=== PATIENT | female | born 1960 | race African-American/Black ===

== ENCOUNTER 2017-09-10 11:32 | Emergency (ER) | payer SELFPAY ==
--- NOTE | 2017-09-10 11:42 | ER Report ---
History and Physical Time Seen By MD: 11:42 HPI/ROS CHIEF COMPLAINT: Flank pain, nausea HISTORY OF PRESENT ILLNESS: 57-year-old female patient presents to emergency room with complaint of flank pain and nausea. Patient states that she was diagnosed in the recent past with kidney stones. She states she was told that she had a 6 mm stone on the left side, she also had 5 on the right. She states she was placed on hydrocodone and Zofran. Patient states that she ran out of the medications 3 days ago. Since then she's been having significant amounts of nausea. She states that she is not been able to keep anything down for the last 6 hours. Everything that she's tried eat or drink has come back up. She denies having any fevers, states she's only been able to stay in the truck and moan due to the pain as well as nausea. Patient did try some [id number] medication with no improvement. Patient does have a history of pancreatitis and has pain to the upper abdomen. REVIEW OF SYSTEMS: Respiratory: No cough, no dyspnea. Cardiovascular: No chest pain, no palpitations. Gastrointestinal: As noted above Musculoskeletal: No back pain. Allergies: Coded Allergies: No Known Drug Allergies (Unverified , 09/10/17) Home Meds Active Scripts Ondansetron (ZOFRAN ODT) 4 Mg Tab.rapdis, 4 MG PO Q6H Y for NAUSEA/VOMITING, # 20 TAB.STACIA Prov:PHILIPPE COLLINSP 09/10/17 Hydrocodone Bit/Acetaminophen (HYDROCODON-ACETAMINOPHEN 5-325) 1 Each Tablet, 1 EACH PO Q4-6H Y for PAIN, #12 TAB Prov:PHILIPPE COLLINS 09/10/17 Past Medical/Surgical History Patient has a past medical history of bronchitis, kidney stones, back pain, pancreatitis. Patient has a surgical history of left oophorectomy. Reviewed Nurses Notes: Yes Constitutional Vital Sign - Last 24 Hours 09/10/17 09/10/17 09/10/17 09/10/17 11:32 11:37 11:39 11:47 Temp 98.3 Pulse ??? 63 74 Resp 20 B/P (MAP) 171/100 (123) 171/100 Pulse Ox 97 98 O2 Delivery Room Air 09/10/17 09/10/17 09/10/17 09/10/17 12:00 12:02 12:17 12:22 Pulse 75 68 70 Resp 21 11 14 B/P (MAP) 161/108 (125) Pulse Ox 98 93 96 09/10/17 09/10/17 09/10/17 09/10/17 12:30 12:37 12:41 12:52 Pulse ??? 68 Resp 13 B/P (MAP) ???/??? (1665) 153/90 (111) Pulse Ox 96 09/10/17 09/10/17 09/10/17 09/10/17 13:00 13:07 13:21 13:22 Pulse 71 ??? Resp 15 B/P (MAP) 166/102 (123) 165/98 (120) Pulse Ox 97 Intake and Output 09/10/17 09/10/17 09/11/17 15:00 23:00 07:00 Intake Total 700 ml Balance 700 ml Physical Exam General Appearance: The patient is alert, has no immediate need for airway protection and no current signs of toxicity. ENT: Tympanic membranes are pearly-king, auditory canals are patent, mucous membranes are moist. Respiratory: Chest is non tender, lungs are clear to auscultation. Cardiac: regular rate and rhythm Gastrointestinal: Abdomen is soft and non tender, no masses, bowel sounds normal. Musculoskeletal: Neck: Neck is supple and non tender. Extremities have full range of motion and are non tender. Skin: No rashes or lesions. DIFFERENTIAL DIAGNOSIS: After history and physical exam differential diagnosis was considered for flank pain including but not limited to musculoskeletal causes, kidney stone, pyelonephritis, shingles, and intra-abdominal causes such as diverticulitis and appendicitis. Included in the differential is pancreatitis. Medical Decision Making Data Points Result Diagram: 09/10/17 1147 09/10/17 1147 Laboratory Hematology Test 09/10/17 11:47 Red Blood Count 5.17 M/uL (4.17-5.56) Mean Corpuscular Volume 84.5 fL (80.0-96.0) Mean Corpuscular Hemoglobin 28.2 pg (26.0-33.0) Mean Corpuscular Hemoglobin Concent 33.3 g/dL (32.0-36.0) Red Cell Distribution Width 14.7 % (11.5-14.5) Mean Platelet Volume 9.6 fL (7.2-11.1) Neutrophils (%) (Auto) 89.0 % (39.4-72.5) Lymphocytes (%) (Auto) 7.9 % (17.6-49.6) Monocytes (%) (Auto) 2.6 % (4.1-12.4) Eosinophils (%) (Auto) 0.1 % (0.4-6.7) Basophils (%) (Auto) 0.4 % (0.3-1.4) Nucleated RBC Relative Count (auto) 0.0 /100WBC Neutrophils # (Auto) 12.4 K/uL (2.0-7.4) Lymphocytes # (Auto) 1.1 K/uL (1.3-3.6) Monocytes # (Auto) 0.4 K/uL (0.3-1.0) Eosinophils # (Auto) 0.0 K/uL (0.0-0.5) Basophils # (Auto) 0.1 K/uL (0.0-0.1) Nucleated RBC Absolute Count (auto) 0.00 K/uL Peripheral Blood Smear No Y/N Erythrocyte Sedimentation Rate 22 mm/HOUR (0-30) Sodium Level 142 mmol/L (137-145) Potassium Level 4.3 mmol/L (3.5-5.0) Chloride Level 103 mmol/L (98-107) Carbon Dioxide Level 22 mmol/L (22-31) Blood Urea Nitrogen 14 mg/dl (7-18) Creatinine 0.60 mg/dl (0.52-1.04) Glomerular Filtration Rate Calc > 60.0 Random Glucose 135 mg/dl (75-110) Calcium Level 10.8 mg/dl (8.4-10.2) Total Bilirubin 0.6 mg/dl (0.2-1.3) Aspartate Amino Transf (AST/SGOT) 23 U/L (0-35) Alanine Aminotransferase (ALT/SGPT) 22 U/L (0-56) Alkaline Phosphatase 103 U/L (0-126) C-Reactive Protein 0.6 mg/dl (<1.0) Total Protein 8.6 gm/dl (6.3-8.2) Albumin 4.9 g/dl (3.5-5.0) Amylase Level 65 U/L (0-110) Lipase 95 U/L (23-300) Chemistry Test 09/10/17 11:47 White Blood Count 13.9 k/uL (4.5-11.0) Red Blood Count 5.17 M/uL (4.17-5.56) Hemoglobin 14.6 g/dL (12.0-16.0) Hematocrit 43.7 % (34.0-47.0) Mean Corpuscular Volume 84.5 fL (80.0-96.0) Mean Corpuscular Hemoglobin 28.2 pg (26.0-33.0) Mean Corpuscular Hemoglobin Concent 33.3 g/dL (32.0-36.0) Red Cell Distribution Width 14.7 % (11.5-14.5) Platelet Count 239 K/uL (150-450) Mean Platelet Volume 9.6 fL (7.2-11.1) Neutrophils (%) (Auto) 89.0 % (39.4-72.5) Lymphocytes (%) (Auto) 7.9 % (17.6-49.6) Monocytes (%) (Auto) 2.6 % (4.1-12.4) Eosinophils (%) (Auto) 0.1 % (0.4-6.7) Basophils (%) (Auto) 0.4 % (0.3-1.4) Nucleated RBC Relative Count (auto) 0.0 /100WBC Neutrophils # (Auto) 12.4 K/uL (2.0-7.4) Lymphocytes # (Auto) 1.1 K/uL (1.3-3.6) Monocytes # (Auto) 0.4 K/uL (0.3-1.0) Eosinophils # (Auto) 0.0 K/uL (0.0-0.5) Basophils # (Auto) 0.1 K/uL (0.0-0.1) Nucleated RBC Absolute Count (auto) 0.00 K/uL Peripheral Blood Smear No Y/N Erythrocyte Sedimentation Rate 22 mm/HOUR (0-30) Glomerular Filtration Rate Calc > 60.0 Calcium Level 10.8 mg/dl (8.4-10.2) Total Bilirubin 0.6 mg/dl (0.2-1.3) Aspartate Amino Transf (AST/SGOT) 23 U/L (0-35) Alanine Aminotransferase (ALT/SGPT) 22 U/L (0-56) Alkaline Phosphatase 103 U/L (0-126) C-Reactive Protein 0.6 mg/dl (<1.0) Total Protein 8.6 gm/dl (6.3-8.2) Albumin 4.9 g/dl (3.5-5.0) Amylase Level 65 U/L (0-110) Lipase 95 U/L (23-300) EKG/Imaging Imaging CT abdomen and pelvis with IV contrast Indication: Abdominal pain. Flank pain. Comparison: None available. . Technique: Axial CT images were obtained through the abdomen and pelvis during injection of nonionic iodinated intravenous contrast. Reformatted coronal and sagittal images were also obtained. One of the following dose optimization techniques was utilized in the performance of this exam: Automated exposure control; adjustment of the mA and/ or kV according to the patient's size; or use of an iterative reconstruction technique. Specific details can be referenced in the facility's radiology CT exam operational policy. Contrast: 75 ml of Isovue-370 IV contrast. Findings: Lower lung mills: Limited views lower lung field are unremarkable. Liver: No focal parenchymal abnormality of the liver. Biliary: Gallbladder appears unremarkable as well as the intra and extra hepatic biliary system. Pancreas: Normal appearance. Spleen: Normal appearance. Adrenal glands: Unremarkable. Kidneys / retroperitoneum: The right kidney does show a 6.5 mm stone collecting system without hydronephrosis or kidney also shows a 1.2 cm cyst. Left kidney shows probable couple punctate stones in the superior collecting system without hydronephrosis. No discrete left renal lesion. Bowel / peritoneum / mesenteries: The visualized gastrointestinal tract is within normal limits. The appendix is not definitely visualized. The stomach may show small hiatal hernia without other focal abnormality. No free air, free fluid, fluid collections or areas of inflammation. Small umbilical hernia containing fat. Lymph node assessment: No pathologic adenopathy identified. Pelvic structures: Left ovary does show mildly hyperdense foci measuring 1.2 cm. The uterus shows a couple subcentimeter calcified fibroids. Pelvic structures otherwise are unremarkable. Vessels: No significant atherosclerotic calcifications seen throughout a nonaneurysmal abdominal aorta and branches. Musculoskeletal / Body wall: No acute or aggressive osseous abnormality. Mild degenerative changes of the spine. Small bone island in the left ilium. IMPRESSION: 1. Nonobstructing renal calculi. 2. The left ovary does show a 1.2 cm mildly hyperechoic foci which may represent a hemorrhagic cyst. A follow-up pelvic ultrasound in 6 weeks can reevaluate for clearing or other etiologies. 3. Other chronic findings as above. Report Dictated By: Joel Yepez at 09/10/2017 12:58 PM Report E-Signed By: Joel Yepez at 09/10/2017 1:07 PM ED Course/Re-evaluation ED Course Patient was admitted to an exam room, history and physical were obtained. Differential diagnoses were considered. On examination patient had tenderness to the right flank, some abdominal tenderness. A CBC, CMP, CT scan of abdomen and pelvis were done. Lab results were unremarkable, patient did have a slightly elevated white count with a left shift. I believe this likely secondary to her vomiting. The CT scan of the abdomen and pelvis shows stones in the right kidney as well as a 1.2 cm likely ovarian cyst. I discussed findings with the patient and her . We will go ahead and discharge her home at this time. We will give her a limited supply of pain medication as well as Zofran. She is to follow-up with urology when she is home, I also like her follow-up with her lab analyst to help with the cyst. She is any concern she is follow-up with emergency room in route. I discussed this with patient and her they verbalized understanding and agreement with plan. Decision to Disposition Date: Sep 10, 2017 Decision to Disposition Time: 13:14 Depart Departure Latest Vital Signs Vital Signs Date Time Temp Pulse Resp B/P (MAP) Pulse Ox O2 Delivery O2 Flow Rate FiO2 09/10/17 13:22 ??? 09/10/17 13:21 165/98 (120) 09/10/17 13:07 15 97 09/10/17 11:39 98.3 Room Air Impression: Primary Impression: Renal calculi Additional Impression: Ovarian cyst Condition: Improved Disposition: HOME OR SELF-CARE New Scripts Ondansetron (ZOFRAN ODT) 4 Mg Tab.rapdis 4 MG PO Q6H Y for NAUSEA/VOMITING, #20 TAB.STACIA Prov: PHILIPPE COLLINS 09/10/17 Hydrocodone Bit/Acetaminophen (HYDROCODON-ACETAMINOPHEN 5-325) 1 Each Tablet 1 EACH PO Q4-6H Y for PAIN, #12 TAB Prov: PHILIPPE COLLINS 09/10/17 Patient Instructions: Kidney Stones (ED) Additional Instructions: Increase fluid intake. Get plenty of rest. Limit activity by pain. Follow up with your primary care provider in the next week. You may take Ibuprofen in addition to the pain medication. Follow up in an ER if condition worsens. I would encourage following up with urology in the next 1-2 weeks. Follow up with your lab analyst in the next 1-2 weeks. Problem Qualifiers Additional Impression: Ovarian cyst Laterality: left Qualified Codes: N83.202 - Unspecified ovarian cyst, left side PHILIPPE COLLINS MOLD CAPPER Sep 10, 2017 11:42
[2017-09-10] MEDS ORDERED: NS(*) 0.9% 1000 ML BAG 1,000 ML IV ONE (11:54)
[2017-09-10] MEDS ORDERED: ONDANSETRON 4 MG/2 ML VIAL IVP ONE (11:55)
[2017-09-10] MEDS ORDERED: MORPHINE 2 MG/ML SYR IVP ONE (11:55)
[2017-09-10 12:07] LABS: PLATELET COUNT, AUTOMATED 239 K/uL (150-450)
[2017-09-10] MEDS ORDERED: IOPAMIDOL 76% 75 ML INFUS BTL 75 ML ONE (12:07)
--- NOTE | 2017-09-10 13:11 | RADIOLOGY IMAGING REPORT ---
FACILITY: [facility] PATIENT NAME: Isabella Torres : 1960 MR: [id number] V: [id number] EXAM DATE: ORDERING PHYSICIAN: PHILIPPE COLLINS TECHNOLOGIST: Location: [facility] Patient: Isabella Torres : 1960 Visit/Account:[id number] Date of Sevice: 09/10/2017 CT abdomen and pelvis with IV contrast Indication: Abdominal pain. Flank pain. Comparison: None available. . Technique: Axial CT images were obtained through the abdomen and pelvis during injection of nonioni c iodinated intravenous contrast. Reformatted coronal and sagittal images were also obtained. One of the following dose optimization techniques was utilized in the performance of this exam: Autom ated exposure control; adjustment of the mA and/or kV according to the patient's size; or use of an i terative reconstruction technique. Specific details can be referenced in the facility's radiology C T exam operational policy. Contrast: 75 ml of Isovue-370 IV contrast. Findings: Lower lung mills: Limited views lower lung field are unremarkable. Liver: No focal parenchymal abnormality of the liver. Biliary: Gallbladder appears unremarkable as well as the intra and extra hepatic biliary system. Pancreas: Normal appearance. Spleen: Normal appearance. Adrenal glands: Unremarkable. Kidneys / retroperitoneum: The right kidney does show a 6.5 mm stone collecting system without hydron ephrosis or kidney also shows a 1.2 cm cyst. Left kidney shows probable couple punctate stones in the superior collecting system without hydronephrosis. No discrete left renal lesion. Bowel / peritoneum / mesenteries: The visualized gastrointestinal tract is within normal limits. The appendix is not definitely visualized. The stomach may show small hiatal hernia without other focal a bnormality. No free air, free fluid, fluid collections or areas of inflammation. Small umbilical hernia containin g fat. Lymph node assessment: No pathologic adenopathy identified. Pelvic structures: Left ovary does show mildly hyperdense foci measuring 1.2 cm. The uterus shows a couple subcentimeter calcified fibroids. Pelvic structures otherwise are unremarkable. Vessels: No significant atherosclerotic calcifications seen throughout a nonaneurysmal abdominal aort a and branches. Musculoskeletal / Body wall: No acute or aggressive osseous abnormality. Mild degenerative changes of the spine. Small bone island in the left ilium. IMPRESSION: 1. Nonobstructing renal calculi. 2. The left ovary does show a 1.2 cm mildly hyperechoic foci which may represent a hemorrhagic cyst. A follow-up pelvic ultrasound in 6 weeks can reevaluate for clearing or other etiologies. 3. Other chronic findings as above. Report Dictated By: Joel Yepez at 09/10/2017 12:58 PM Report E-Signed By: Joel Yepez at 09/10/2017 1:07 PM [id number]
[2017-09-10] MEDS ORDERED: ONDA4TAB PO (13:14)
[2017-09-10] MEDS ORDERED: HYDR-385 PO (13:14)
[2017-09-10 13:21] VITALS: BP 165/98
== END 2017-09-10 13:32 | disposition home or self-care (01) ==
LOC: ER 11:35
DX: N20.0 Calculus of kidney (principal); N83.202 Unspecified ovarian cyst, left side
CPT/HCPCS: 74177; 82150; 83690; 85025; 85651; 86140; 96361; 96374; 96375; 99284; J2270; J2405; J7030; Q9967; 82040; 82247; 82310; 82374; 82435; 82565; 82947; 84075; 84132; 84155; 84295; 84450; 84460; 84520; A4353